=== PATIENT | female | born 1965 | race Caucasian/White ===

== ENCOUNTER 2018-08-22 16:36 | Emergency (ER) | payer BC | END 2018-08-22 18:02 | disposition home or self-care (01) | LOC: FTE 18:02 | DX: S09.90XA Unspecified injury of head, initial encounter (principal); E03.9 Hypothyroidism, unspecified; R11.0 Nausea; W22.03XA Walked into furniture, initial encounter; Y92.9 Unspecified place or not applicable | CPT/HCPCS: 99283 ==